=== PATIENT | male | born 1965 | race Caucasian/White ===

== ENCOUNTER 2022-05-25 03:28 | Inpatient (IN) | payer SELFPAY ==
[2022-05-25] VITALS (11 sets, daily range): BP systolic 113–148; BP diastolic 73–95
[~2022-05-25] VITALS: Ht 167.6 cm; Wt 66.4 kg
[2022-05-25 03:53] LABS: HEMATOCRIT 40.2 % (39.0-50.0); HEMOGLOBIN 14.4 g/dl (14.0-18.0); IMMATURE GRANULOCYTES 0.6 % (0.0-5.0); MEAN CELL VOLUME 93.1 fL CALC (80.0-100.0); MEAN CORPUSCULAR HGB 33.3 pG CALC (26.0-32.0); MEAN CORPUSCULAR HGB CONC 35.8 g/dL CAL (32.0-36.0); NEUT# 6.04 thou/uL (1.82-7.42); RED BLOOD COUNT 4.32 mill/uL (4.70-6.10); RED CELL DISTRI WIDTH 12.5 % (11.5-15.5); URINE BILIRUBIN - DIPSTICK NEGATIVE (NEGATIVE); URINE BLOOD DIPSTICK MODERATE (NEGATIVE); URINE COLOR YELLOW; URINE GLUCOSE - DIPSTICK NEGATIVE (NEGATIVE); URINE KETONE NEGATIVE (NEGATIVE); URINE LEUK ESTERASE NEGATIVE (NEGATIVE); URINE PROTEIN - DIPSTICK NEGATIVE (NEG-TRACE); URINE SPECIFIC GRAVITY <=1.005; URINE UROBILINOGEN - DIPSTICK 0.2 E.U./dL (0.2)
[2022-05-25 03:54] LABS: URINE NITRITE - DIPSTICK NEGATIVE (Negative)
[2022-05-25 04:01] LABS: URINE SQUAMOUS EPITHELIAL CELL FEW EPI/hpf (0-FEW); URINE WBC 0-2 WBC/hpf (0-5)
[2022-05-25 04:11] LABS: ALBUMIN 4.4 g/dL (3.2-5.0); ALKALINE PHOSPHATASE 58 u/l (38-126); ANION GAP 15 (6-22 (CALC)); BILIRUBIN, TOTAL 0.3 mg/dL (0.0-1.4); BUN 7 mg/dL (9-20); BUN/CREATININE RATIO 12 (12-20 (CALC)); CARBON DIOXIDE 23 mmol/l (22-30); CHLORIDE 88 mmol/l (95-108); CREATININE 0.6 mg/dL (0.7-1.3); GFR FOR AFR.AMER. > 60 ML/MIN (>=60 (CALC)); GFR OTHER RACES > 60 ML/MIN (>=60 (CALC)); POTASSIUM 3.7 mmol/l (3.5-5.1); SGOT/AST 52 u/l (17-59); SODIUM 122 mmol/l (137-146); TOTAL PROTEIN 7.5 g/dL (6.3-8.2)
[2022-05-25 04:13] LABS: PROTHROMBIN TIME 10.3 SECONDS (9.0-12.5)
[2022-05-25] MEDS ORDERED: GABAPENTIN100 MG PO (04:15)
[2022-05-26 04:19] VITALS: BP 116/64
[2022-05-26 05:30] LABS: HEMATOCRIT 36.8 % (39.0-50.0); HEMOGLOBIN 13.4 g/dl (14.0-18.0); MEAN CELL VOLUME 92.5 fL CALC (80.0-100.0); MEAN CORPUSCULAR HGB 33.7 pG CALC (26.0-32.0); MEAN CORPUSCULAR HGB CONC 36.4 g/dL CAL (32.0-36.0); RED BLOOD COUNT 3.98 mill/uL (4.70-6.10); RED CELL DISTRI WIDTH 12.5 % (11.5-15.5)
[2022-05-26 05:45] LABS: ANION GAP 11 (6-22 (CALC)); BUN 7 mg/dL (9-20); BUN/CREATININE RATIO 13 (12-20 (CALC)); CARBON DIOXIDE 26 mmol/l (22-30); CHLORIDE 96 mmol/l (95-108); CREATININE 0.6 mg/dL (0.7-1.3); GFR FOR AFR.AMER. > 60 ML/MIN (>=60 (CALC)); GFR OTHER RACES > 60 ML/MIN (>=60 (CALC)); MAGNESIUM 1.9 mg/dL (1.6-2.3); POTASSIUM 3.8 mmol/l (3.5-5.1)
[2022-05-26 05:55] LABS: SODIUM 129 mmol/l (137-146)
[2022-05-26 06:40] VITALS: BP 121/73
[2022-05-26 10:27] VITALS: BP 121/71
[2022-05-26] MEDS ORDERED: PREDNISONE10 MG PO (13:01)
[2022-05-26] MEDS ORDERED: ZITHROMAX250 MG PO (13:02)
[2022-05-26] MEDS ORDERED: NICODERM C21 MG/242 TD (13:03)
== END 2022-05-26 13:49 | disposition home or self-care (01) | DRG 190 ==
LOC: ED 03:28 → ED-I 04:43 → ED 04:56 → MS2 04:57
PROVIDERS: Emergency Medicine; Internal Medicine; ADMIT Internal Medicine; ATTEND Internal Medicine
DX: J44.1 Chronic obstructive pulmonary disease with (acute) exacerbation (principal); J96.01 Acute respiratory failure with hypoxia; E87.1 Hypo-osmolality and hyponatremia; G62.9 Polyneuropathy, unspecified; F17.200 Nicotine dependence, unspecified, uncomplicated; F10.90 Alcohol use, unspecified, uncomplicated
CPT/HCPCS: J1650; Q9967

== ENCOUNTER 2022-08-01 18:08 | Observation (INO) | payer SELFPAY ==
[~2022-08-01] VITALS: Ht 167.6 cm; Wt 70.3 kg
[~2022-08-01 18:08] MED LIST: GABAPENTIN100 MG PO; NICODERM C21 MG/242 TD; PREDNISONE10 MG PO; ZITHROMAX250 MG PO
[2022-08-01 18:38] LABS: BASO% 0.5 % (0-3); EOS% 6.8 % (0-8); HEMATOCRIT 37.3 % (39.0-50.0); HEMOGLOBIN 13.1 g/dl (14.0-18.0); IMMATURE GRANULOCYTES 0.3 % (0.0-5.0); LYMPH% 21.7 % (15-41); MEAN CELL VOLUME 95.4 fL CALC (80.0-100.0); MEAN CORPUSCULAR HGB 33.5 pG CALC (26.0-32.0); MEAN CORPUSCULAR HGB CONC 35.1 g/dL CAL (32.0-36.0); MONO% 14.7 % (2-13); NEUT# 4.2 thou/uL (1.82-7.42); RED BLOOD COUNT 3.91 mill/uL (4.70-6.10); RED CELL DISTRI WIDTH 13.1 % (11.5-15.5)
[2022-08-01 18:48] LABS: ALBUMIN 4.6 g/dL (3.2-5.0); ALKALINE PHOSPHATASE 42 u/l (38-126); ANION GAP 12 (6-22 (CALC)); BUN 8 mg/dL (9-20); BUN/CREATININE RATIO 10 (12-20 (CALC)); CARBON DIOXIDE 26 mmol/l (22-30); CHLORIDE 95 mmol/l (95-108); CREATININE 0.9 mg/dL (0.7-1.3); GFR FOR AFR.AMER. > 60 ML/MIN (>=60 (CALC)); GFR OTHER RACES > 60 ML/MIN (>=60 (CALC)); POTASSIUM 3.9 mmol/l (3.5-5.1); SGOT/AST 50 u/l (17-59); SODIUM 129 mmol/l (137-146); TOTAL PROTEIN 7.8 g/dL (6.3-8.2)
[2022-08-01 18:50] LABS: BILIRUBIN, TOTAL 0.5 mg/dL (0.0-1.4)
[2022-08-01 20:56] VITALS: BP 190/109
[2022-08-01 21:29] VITALS: BP 153/95
[2022-08-01 22:48] VITALS: BP 140/88
[2022-08-02 00:24] VITALS: BP 139/87
[2022-08-02 02:32] LABS: CHOLESTEROL HDL RATIO 2.6 (<4.4 (CALC)); MAGNESIUM 1.8 mg/dL (1.6-2.3)
[2022-08-02 04:34] VITALS: BP 131/85
[2022-08-02 06:30] VITALS: BP 144/93
[2022-08-02] MEDS ORDERED: LISINOPRIL20 M1 PO (10:24)
[2022-08-02 10:59] VITALS: BP 158/104
== END 2022-08-02 13:35 | disposition home or self-care (01) | DRG 313 ==
LOC: ED 18:08 → MS2 20:08
PROVIDERS: Family Medicine; ADMIT Internal Medicine; ATTEND Internal Medicine
DX: R07.2 Precordial pain (principal); I10 Essential (primary) hypertension; J44.9 Chronic obstructive pulmonary disease, unspecified; E87.1 Hypo-osmolality and hyponatremia; T46.4X6A Underdosing of angiotensin-converting-enzyme inhibitors, initial encounter; Z91.128 Patient's intentional underdosing of medication regimen for other reason; Z87.891 Personal history of nicotine dependence; Z87.01 Personal history of pneumonia (recurrent)
CPT/HCPCS: G0378; J1650